=== PATIENT | male | born 1960 | race African-American/Black ===

== ENCOUNTER 2025-07-17 08:28 | Inpatient (IN) | payer OTHER ==
[2025-07-17 08:53] VITALS: BMI 30.7
[2025-07-17] MEDS: TRIMETHOBENZAMIDE HCL 200MG/2ML INJ IM ONE (09:07)
[2025-07-17] MEDS ORDERED: DICYCLOMINE HCL 10 MG CAPSULE PO PRN (09:08)
[2025-07-17] MEDS ORDERED: NALOXONE (NARCAN) HCL 4 MG/0.1 ML SPRAY NS PRN (09:08)
[2025-07-17] MEDS ORDERED: MAG HYDROX/AL HYDROX/SIMETH 30 ML UNIT-DOSE CUP PO PRN (09:08)
[2025-07-17] MEDS ORDERED: POLYETHYLENE GLYCOL (HEALTHYLAX) 3350 17 GM PACKET PO PRN (09:08)
[2025-07-17] MEDS ORDERED: ACETAMINOPHEN 325 MG TABLET (FP) PO PRN (09:08)
[2025-07-17] MEDS ORDERED: BENZOCAINE/MENTHOL (CHLORASEPTIC ) LOZENGE MM PRN (09:08)
[2025-07-17] MEDS ORDERED: LOPERAMIDE HCL 2 MG CAPSULE PO PRN (09:08)
[2025-07-17] MEDS ORDERED: guaiFENesin 600 MG TABLET.ER (FP) PO PRN (09:08)
[2025-07-17] MEDS ORDERED: hydrOXYzine PAMOATE 25 MG CAPSULE (FP) PO PRN (09:08)
[2025-07-17] MEDS ORDERED: MAGNESIUM HYDROX 2400MG/30ML ORAL SUSPENSION 30 ML CUP PO PRN (09:08)
[2025-07-17] MEDS ORDERED: BENZONATATE 200 MG CAPSULE PO PRN (09:08)
[2025-07-17] MEDS ORDERED: IBUPROFEN 400 MG TABLET (FP) PO PRN (09:08)
[2025-07-17] MEDS: levETIRAcetam 500 MG TABLET (FP) PO ONE ×2 (11:10→11:17)
[2025-07-17] MEDS: PRENATAL VITAMINS W/ FOLIC ACID TABLET (FP) PO SCH (11:10)
[2025-07-17] MEDS: METHOCARBAMOL 500 MG TABLET PO PRN (11:17)
[2025-07-17] MEDS: NALTREXONE HCL 50 MG TABLET PO ONE (11:18)
[2025-07-17] MEDS: ONDANSETRON *ODT* 4 MG TABLET SL PRN (11:38)
[2025-07-17] MEDS: THIAMINE 100 MG TABLET PO SCH (22:29)
[2025-07-17] MEDS: ATORVASTATIN CA 40 MG TABLET (FP) PO SCH (22:29)
[2025-07-17] MEDS: CARVEDILOL 3.125 MG TABLET (FP) PO SCH (22:29)
[2025-07-17] MEDS: MELATONIN 5 MG TABLETS PO SCH (22:29)
[2025-07-18] MEDS: NIFEdipine E.R 60 MG TABLET PO SCH (10:10)
[2025-07-18] MEDS: NALTREXONE HCL 50 MG TABLET PO SCH (10:10)
[2025-07-18] MEDS: PANTOPRAZOLE 40 MG TABLET PO SCH (10:10)
[2025-07-18] MEDS: CLOPIDOGREL BISULFATE 75 MG TABLET (FP) PO SCH (10:10)
[2025-07-18] MEDS: ALLOPURINOL 100 MG TABLET (FP) PO SCH (10:10)
[2025-07-18] MEDS: levETIRAcetam 500 MG TABLET (FP) PO SCH (10:11)
[2025-07-18] MEDS: ISOSORBIDE MONONITRATE 30 MG TAB.SR.24H (FP) PO SCH (10:13)
[2025-07-18] MEDS: COLCHICINE 0.6 MG TAB PO SCH (10:14)
[2025-07-18] MEDS: ASPIRIN COATED 81 MG TABLET.EC PO SCH (10:14)
[2025-07-18] MEDS: BISMUTH SUBSALICYLATE 524 MG/30 ML PO PRN (10:52)
[2025-07-18 11:28] LABS: MCHC 33.2 g/dl (32.3-36.5); MEAN CELL VOLUME 84.2 fl (79.0-92.2); MEAN PLT VOLUME 10.5 fl (9.4-12.4); RDW 16.2 % (12.2-16.4)
[2025-07-18 12:30] LABS: GLUCOSE,RANDOM 116.0 mg/dL (74-106)
[2025-07-18 12:31] LABS: TOT PROT 7.6 g/dl (6.4-8.2)
[2025-07-18 12:32] LABS: CO2 23.0 mmol/L (21-32)
[2025-07-18 12:33] LABS: ALK PHOS 29.0 U/L (40-150)
[2025-07-18 12:36] LABS: CREATININE 0.88 mg/dL (0.55-1.3); SGOT/AST 46.0 U/L (5-34); SGPT/ALT 23.0 U/L (0-55)
[2025-07-18] MEDS: PNEUMOC 20-VAL CONJ-DIP CRM/PF 0.5 ML SYRINGE IM ONE (12:37)
[2025-07-18] MEDS ORDERED: NITROGLYCERIN SUBLINGUAL 1/150 0.4 MG TAB SL PRN (13:00)
[2025-07-18] MEDS: LACTULOSE 20 GM/30 ML UDC (FOR ORAL USE ONLY) PO SCH (16:57)
[2025-07-18] MEDS: IBUPROFEN 600 MG TABLET (FP) PO PRN (20:54)
[2025-07-19] MEDS: LOSARTAN POTASSIUM 50 MG TABLET PO SCH (10:59)
[2025-07-20 09:48] VITALS: BP 151/98; PULSE 95; RESP 18; TEMP 97.5
== END 2025-07-20 09:29 | disposition home or self-care (01) | DRG 775 ==
LOC: YASAS 08:28 → Y3N 10:05
PROVIDERS: ADMIT Allergy & Immunology; ATTEND Allergy & Immunology
PROC: HZ2ZZZZ Detoxification Services for Substance Abuse Treatment (ICD-10-PCS; principal; 2025-07-17)
DX: F10.230 Alcohol dependence with withdrawal, uncomplicated (principal); I25.10 Atherosclerotic heart disease of native coronary artery without angina pectoris; I10 Essential (primary) hypertension; I25.2 Old myocardial infarction; E78.49 Other hyperlipidemia; J30.2 Other seasonal allergic rhinitis; K21.9 Gastro-esophageal reflux disease without esophagitis; M1A.09X0 Idiopathic chronic gout, multiple sites, without tophus (tophi); R79.89 Other specified abnormal findings of blood chemistry
CPT/HCPCS: 36415; 80053; 80307; 82140; 85027; 86780; 90677; 93005; 93010; Q0162